=== PATIENT | female | born 1975 | race Asian ===

== ENCOUNTER 2019-10-10 09:10 | Emergency (ER) | payer BC ==
[~2019-10-10] VITALS: Ht 157.5 cm; Wt 60.8 kg
[2019-10-10 09:14] VITALS: Ht 157.5 cm; Wt 60.8 kg
[2019-10-10 12:59] VITALS: BP 121/81
== END 2019-10-10 12:59 | disposition home or self-care (01) ==
LOC: ED 09:10
DX: T78.40XA Allergy, unspecified, initial encounter (principal); X58.XXXA Exposure to other specified factors, initial encounter; Z88.8 Allergy status to other drugs, medicaments and biological substances; Z85.3 Personal history of malignant neoplasm of breast
CPT/HCPCS: J1200; J2930; J3490